=== PATIENT | female | born 2005 | race Native Hawaiian/Other Pacific Islander ===

== ENCOUNTER → 2024-09-22 13:55 | Outpatient (CLI) | payer OTHER, SELFPAY ==
[2024-09-22 14:42] LABS: Add Manual Diff / Slide Review NO; Basophils Absolute Auto 0 /uL (0-100); Basophils Percent Auto 0.4 % (0-2); Eosinophils Absolute Auto 100 /uL (0-450); Eosinophils Percent Auto 0.6 % (2-4); Hematocrit 40.4 % (36-46); Hemoglobin 12.7 g/dL (12.0-16.0); Lymphocytes Absolute Auto 1900 /uL (1100-4500); Lymphocytes Percent Auto 19.1 % (25-40); Mean Corpuscular HGB Conc 31.5 % (30-36); Mean Corpuscular Hemoglobin 22.9 PG (26-34); Mean Corpuscular Volume 72.8 fL (80-100); Monocytes Absolute Auto 700 /uL (0-900); Monocytes Percent Auto 7.6 % (3-14); Neutrophils Absolute Auto 7100 /uL (1500-7000); Neutrophils Percent Auto 72.3 % (50-75); Platelet Count 230 X10^3/uL (150-400); Red Blood Cell Count 5.55 X10^6/uL (4.0-5.2); Red Cell Distribution Width 16.5 % (11.6-14.8); White Blood Cell Count 9.8 X10^3/uL (4.5-11.0)
[2024-09-23 13:57] LABS: Strep Grp B PCR NEG for Grp B Strep
== END ==
PROVIDERS: PCP Nurse Practitioner Family; Referring Provider Obstetrics & Gynecology; Visit Provider Obstetrics & Gynecology
DX: Z34.93 Encounter for supervision of normal pregnancy, unspecified, third trimester (principal); Z3A.35 35 weeks gestation of pregnancy
CPT/HCPCS: 36415; 85025; 86850; 86900; 86901; 87653

== ENCOUNTER → 2024-09-28 14:31 | Outpatient (CLI) | payer OTHER, SELFPAY ==
--- NOTE | 2024-09-28 14:32 | DI.US.S_ITS ---
PROCEDURE: US OB LIMITED INDICATIONS: growth OUTSIDE/PRIOR DATING DATA: Last menstrual period (LMP): Unknown. LMP-based estimated date of delivery (ZOHRA): Not applicable. First dating scan (date and location): Unknown. Estimated date of delivery (ZOHRA) from first dating scan: Not applicable. The calculations are made using the working ZOHRA of 10/21/24. TECHNIQUE: Real-time scanning was performed of the fetus, with image documentation. Endovaginal scanning: No COMPARISON: None. FINDINGS: A single living intrauterine gestation is present. Presentation: Vertex. Placenta: Placental position is anterior, without previa. Amniotic fluid index: 8.2 cm, normal range is 5-24 cm. Single deepest vertical pocket is 2.6 cm. heart rate: 144 beats per minute. Maternal cervical canal: Not well seen Biparietal diameter 9.0 cm, 36 weeks three days Head circumference 32.1 cm, 36 weeks two days Abdominal circumference 31.7 cm, 35 weeks four days Femur length 6.8 cm, 34 weeks five days Clinically estimated gestational age: 36 weeks five days Estimated gestational age from today's scan: 35 weeks five days. Estimated weight 2702 g, 24th percentile IMPRESSION: Single live intrauterine with estimated weight at the 24th percentile. Compare composite gestational age by today's measurements is one week behind the clinical gestational age. Amniotic fluid index on the low end of normal. Dictated by: Umm Coulter M.D. on 09/29/2024 at 15:40 Approved by: Umm Coulter M.D. on 09/29/2024 at 15:55
== END ==
PROVIDERS: Referring Provider Obstetrics & Gynecology; Visit Provider Obstetrics & Gynecology
DX: Z34.00 Encounter for supervision of normal first pregnancy, unspecified trimester (principal)
CPT/HCPCS: 76815

== ENCOUNTER 2024-09-29 08:54 | Outpatient (CLI) | payer OTHER, SELFPAY | END 2024-09-29 09:50 | disposition home or self-care (01) | LOC: LABOR 09:54 → OB 13:57 | PROVIDERS: PCP Nurse Practitioner Family; Referring Provider Obstetrics & Gynecology; Visit Provider Obstetrics & Gynecology | DX: O36.5930 Maternal care for other known or suspected poor fetal growth, third trimester, not applicable or unspecified (principal); Z3A.36 36 weeks gestation of pregnancy | CPT/HCPCS: 59025; G0378; G0379 ==

== ENCOUNTER 2024-10-06 10:02 | Outpatient (CLI) | payer OTHER, SELFPAY | END 2024-10-06 10:55 | disposition home or self-care (01) | LOC: LABOR 10:14 → OB 12:17 | PROVIDERS: PCP Nurse Practitioner Family; Referring Provider Obstetrics & Gynecology; Visit Provider Obstetrics & Gynecology | DX: O36.5920 Maternal care for other known or suspected poor fetal growth, second trimester, not applicable or unspecified (principal); Z3A.37 37 weeks gestation of pregnancy | CPT/HCPCS: 59025; G0378; G0379 ==

== ENCOUNTER 2024-10-07 08:44 | Observation (INO) | payer OTHER, SELFPAY | END 2024-10-07 11:15 | disposition home or self-care (01) | PROVIDERS: Admitting Provider Student in an Organized Health Care Education/Training Program; PCP Nurse Practitioner Family; Referring Provider Emergency Medicine; Visit Provider Student in an Organized Health Care Education/Training Program | DX: O36.5930 Maternal care for other known or suspected poor fetal growth, third trimester, not applicable or unspecified (principal); Z3A.38 38 weeks gestation of pregnancy | CPT/HCPCS: 59025; 59050; G0378; G0379 ==

== ENCOUNTER 2024-10-07 17:32 | Inpatient (IN) | payer OTHER, SELFPAY ==
--- NOTE | 2024-10-07 18:44 | PM.OBHP.IH.1 ---
OB HPI Date/Time Date of admission: 10/07/24 History of Present Condition Chief complaint: nst ZOHRA Calculator Estimated Delivery Date Method Current WG Current Estimate 10/21/24 LMP (Uncertain) 38w 0d Other Estimates 10/16/24 Ultrasound #1 38w 5d 10/21/24 Manual 38w 0d : 1 Narrative: 19 yo G1 at 38w0d here with vaginal bleeding and contractions found to be ruptured. Was seen this morning for cramping and small amount of bleeding, found to be 4cm at that time. Sent home for early labor. Contractions now intensified and water seems to have broken at some point. GBS negative. Good movement. complicated by late to care (17wks) and resolved IUGR (last growth 24th percentile 09/28). care: initiated at week # (17) Dating criteria OB: LMP confirmed by 2nd trimester US Ultrasounds: normal mid trimester US Obstetrical complications: growth restriction (resolved by last US (24th percentile)) Medical complications OB: none Preadmission Labs Last OB Lab Results: Blood Type AB Positive 09/22/24, 14:00 Antibody Screen Negative 09/22/24, 14:00 Hct, (36-46) 44.5 % Today, 18:33 Hgb, (12.0-16.0) 14.1 g/dL Today, 18:33 Group B Strep (PCR) Neg for grp b strep 09/22/24, 13:30 Genetic Screens: Cell-free DNA: Normal Evaluation Evaluation Baseline heart rate: 145 Variability: Average (6-10) monitor accelerations: Present Monitor Decelerations: Absent Contraction Frequency (minutes): 8 Uterine Contraction Intensity: Strong/Firm Category of Tracing: Reactive Status: Category l Dilation (cm): 7 Effacement (%): 100 Dilation: >/=5 cm Effacement: >/=80% station: -1 Position of cervix: anterior Consistency: soft Brooks score: 12 PFSH Surgical History (Updated 09/18/24 @ 08:38 by Jadyn Madrid RN) No pertinent past surgical history Family History (Updated 09/18/24 @ 08:41 by Jadyn Madrid RN) Grandfather Diabetes mellitus Heart disease Mother Asthma Aunt Breast cancer Sister Asthma Social History marital status: number of children: 0 household members: spouse lives independently: Yes caregiver/support person: No housing: house pets and animals: Yes education level: college (some college) occupational status: unemployed current occupational exposures/hazards: No special sammy needs: No travel history: recent (domestic only) seatbelt use: always water heater temp set < 120 deg: Yes working smoke detector in home: Yes fire extinguisher in home: No carbon monox detector in home: Yes firearms in home: No do you feel safe at home: Yes second hand exposure: No alcohol intake: former (rarely when not ) substance use type: marijuana (as a teen, no longer) during the past year weight has: remained stable (prior to ) well-balanced diet: rarely or never daily servings fruits/ve-1 (bananas only) caffeine: No Type(s) of exercise: walking Meds Home Medications and Allergies Home Medications ?Medication ?Instructions ?Recorded ?Confirmed ?Type metronidazole 500 mg tablet 500 mg PO BID 09/18/24 10/06/24 History vit no.95-ferrous 1 tab PO DAILY 09/18/24 10/06/24 History fumarate 28 mg-folic acid 800 mcg tablet ( Multivitamins) Allergies Allergy/AdvReac Type Severity Reaction Status Date / Time No Known Drug Allergies Allergy Unverified 10/06/24 11:07 Objective Labs 10/07/24 18:33 Assessment and Plan Assessment and Plan Assessment and Plan narrative: 19 yo G1 at 38w0d here with SROM and spontaneous labor. GBS negative. SVE 7/100/-1. complicated by resolved IUGR and late to care (17 wks). -admit for labor -patient desires unmedicated delivery, will hold off pitocin at this time -anticipate Time-Based Coding :: 40 minutes spent with patient and on the chart (including review of chart, obtaining history, exam, reviewing outside data, placing orders, documenting exam and treatment plan, and counseling patient) on 10/07/2024.
[2024-10-07 18:46] LABS: Basophils Absolute Auto 100 /uL (0-100); Basophils Percent Auto 0.7 % (0-2); Eosinophils Absolute Auto 0 /uL (0-450); Eosinophils Percent Auto 0.3 % (2-4); Hematocrit 44.5 % (36-46); Hemoglobin 14.1 g/dL (12.0-16.0); Lymphocytes Absolute Auto 2200 /uL (1100-4500); Lymphocytes Percent Auto 17.2 % (25-40); Mean Corpuscular HGB Conc 31.7 % (30-36); Mean Corpuscular Hemoglobin 23.5 PG (26-34); Monocytes Absolute Auto 1000 /uL (0-900); Monocytes Percent Auto 7.9 % (3-14); Neutrophils Absolute Auto 9600 /uL (1500-7000); Neutrophils Percent Auto 73.9 % (50-75); Platelet Count 223 X10^3/uL (150-400); Red Blood Cell Count 6.01 X10^6/uL (4.0-5.2); Red Cell Distribution Width 18.1 % (11.6-14.8)
[2024-10-07 19:13] LABS: Add Manual Diff / Slide Review SLIDE REVIEW
[2024-10-07 19:30] VITALS: BP 125/72
[2024-10-07 19:30] LABS: Microcytosis 1+
--- NOTE | 2024-10-08 02:41 | PM.OBPRVD ---
Labor & Delivery Delivery date: 10/08/24 Delivery Time: 02:06 Intrapartal Events: None Cervical ripening method: none Induction method: none Delivery augmentation: rupture of membranes Delivery monitor: external FHT Route of delivery: Episiotomy description: None L&D Laceration Description: Perineal - 2nd Degree Delivery repair: vicryl Estimated blood loss (mL): 450 Anesthesia Type: None Narrative: This is a 19 yo G1 at 38w1d who presented in spontaneous labor at 7/100/-1. She progressed to complete without augmentation. Delivery was augmented by AROM of forebag. She pushed effectively over 20 minutes and bore a viable male in the OA position. Cord was clamped and cut by father at 3 minutes of life. Placenta delivered with gentle cord traction. Pitocin was started following delivery of placenta. There was a large gush of blood following delivery of placenta with poor uterine tone on external fundal massage. Pitocin was increased from 150 to 300. Internal fundal massage was started with good response. 800 mcg rectalmisoprostol was given as well as 1gm TXA. Bleeding slowed and uterine tone was firm. Gloves changed. There was a 2nd degree perineal that was repaired with 3-0 vicryl and local anesthetic. Mom and baby are recovering well. Plan for aftercare: Routine care
[2024-10-08] MEDS: LIDOCAINE 1% 20 ML INJ (02:55)
[2024-10-08] MEDS: OXYTOCIN PREMIX 30 UNIT/500 ML PLAST..BAG 200 UNIT IV (02:55)
[2024-10-08] MEDS: TRANEXAMIC ACID 1,000 MG in SODIUM CHLORIDE 0.9% 100 ML 600 MG IV (02:56)
[2024-10-08] MEDS: miSOPROStoL 200 MCG TABLET 800 MCG PR (02:56)
[2024-10-08] MEDS: DERMOPLAST SPRAY 20% 60 ML 1 SPRAY TOP (11:24)
[2024-10-08] MEDS: PRENATAL VIT,CALC/IRON/FOLIC 1 TABLET 1 TAB PO (11:24)
--- NOTE | 2024-10-09 07:39 | PM.OBDS.1 ---
Discharge Providers Provider Date of admission: 10/07/24 17:32 Discharge Date: 10/09/24 Primary care physician: AMRITA Gifford Consults: 10/07/24 18:38 Consult to Anesthesiology Urgent Comment: Consulting Provider: Anesthesiologist Reason for consultation: Epidural 10/09/24 02:40 Consult to Reconstructive Dentist Routine Comment: Discharge provider: Tiffanie Barrera MD Summary Hospital Course Date Patient Seen: 10/09/24 Time Patient Seen: 07:30 Diagnoses: Term Hospital Course: This is a 19 yo G1 who presented at 38w0d in spontaneous labor. She progressed without intervention and had a spontaneous vaginal delivery at 38w1d. complicated by late to care (17 wks) and resolved IUGR (last growth 24th percentile 09/28). She did well . without difficulty. Bleeding like a period. Pain minimal. Peripartum Data Infant Delivery Method: Natural Vaginal Laceration Description: Perineal - 2nd Degree complications: none Status at Discharge Cognitive/behavioral status at discharge: oriented Functional status at discharge: independent ambulation Overall status at discharge: patient is back to baseline Time Spent with Patient Time attestation: Total time spent providing and/or coordinating discharge services: 35 minutes Time spent: Greater than 30 minutes Objective Labs 10/07/24 18:33 Exam Narrative Exam Narrative: NAD, breathing easily Discharge Plan Discharge Plan Patient Disposition: Home Discharge orders & Medications Prescriptions: New acetaminophen 325 mg Tablet 650 mg PO Q6HR PRN (Reason: Pain, Mild (1-3)) Qty: 30 0RF docusate sodium 100 mg Capsule 100 mg PO DAILY Qty: 30 0RF ibuprofen 600 mg Tablet 600 mg PO Q6HR PRN (Reason: Pain, Mild (1-3)) Qty: 30 0RF Continued PNV cmb#95-ferrous fumarate-FA [ Multivitamins] 28 mg iron- 800 mcg tablet 1 tab PO DAILY metronidazole 500 mg tablet 500 mg PO BID Follow up/Referrals: May Wetzel MD [Physician, TECHNOLOGIST DEVELOPMENT] - 6 Weeks Referral Note: 6 week Appt w/ Dr. Wetzel: Visit Report/Discharge Packet Stand Alone Forms: Patient Portal/API, Stroke Signs & Symptoms Discharge Data Primary Care Provider: Tiffanie Appiah Attending Provider: Tiffanie Barrera Admit Date/Time: 10/07/24 17:32
== END 2024-10-09 11:09 | disposition home or self-care (01) | DRG 807 ==
PROVIDERS: Admitting Provider Student in an Organized Health Care Education/Training Program; PCP Nurse Practitioner Family; Referring Provider Student in an Organized Health Care Education/Training Program; Visit Provider Student in an Organized Health Care Education/Training Program
DX: O70.1 Second degree perineal laceration during delivery (principal); Z37.0 Single live birth; Z3A.38 38 weeks gestation of pregnancy
CPT/HCPCS: 36415; 59025; 59050; 85025; 86850; 86900; 86901; G0378; G0379; J2590; S0191